=== PATIENT | male | born 1950 | race Caucasian/White ===

== ENCOUNTER 2017-06-13 00:24 | Emergency (ER) | payer BC, MEDICARE ==
[~2017-06-13] VITALS: Ht 185.4 cm; Wt 100.0 kg
[~2017-06-13 00:24] MED LIST: CARB100S PO; CLOP75 PO; HYDR-3533 PO; KEPP1000 PO; ROSU5 PO; ST J81CH PO; VALA500 PO; ZOFR4TAB3 SL
[2017-06-13 00:25] VITALS: BP 118/80; PULSE 111; RESP 48; TEMP 100.8; O2SAT 98
[2017-06-13] MEDS ORDERED: MORPHINE SULFATE 4 MG/ML INJ IV ONE (00:45)
[2017-06-13 01:14] VITALS: O2SAT 98
--- NOTE | 2017-06-13 01:30 | PD ---
HPI Chief Complaint: Respiratory Distress Time Seen by Provider: 00:29 Travel History International Travel<30 days: No (UNABLE TO ASSESS PT ALTERED) Contact w/Intl Traveler<30days: No (UNABLE TO ASSESS PT ALTERED) Traveled to known affect area: No (UNABLE TO ASSESS PT ALTERED) History of Present Illness HPI 66-year-old male [facility] emergently for respiratory distress. Patient is a DNR. 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 Patient was discharged from [facility] 2 days ago and was at [facility]. He started having progressive difficulty breathing. His is here who is giving history since patient is in no capacity. She is the healthcare proxy as well. There was a chest x-ray done yesterday but the does not know about the results. Patient has a rectal temperature of 100.8. As per the paramedics initially when they arrived his oxygen saturation was in the 80s and he was gurgling with secretion. He was put on nonrebreather and even though he saturating 99% he is visibly in distress. [facility] Past Medical History Narrative Medical List of his past medical, surgical, social and family history is reviewed from the nursing note. Asthma: No Blood Disorders: No Anxiety: No Depression: No Heart Rhythm Problems: No Cancer: No Cardiac Catheterization: Yes Cardiovascular Problems: Yes (2 [place] with stent placement) High Cholesterol: Yes Chemotherapy: No Chest Pain: No Congestive Heart Failure: No COPD: No Cerebrovascular Accident: Yes (FEBRUARY 06, 2014) Coronary Artery Disease: Yes Diabetes: No Diminished Hearing: Yes (BILAT HEARING LOSS) Endocrine: No GERD: Yes Genitourinary: No Hypertension: Yes Immune Disorder: No Implanted Vascular Access Dvce: Yes (UNKOWN) Musculoskeletal: Yes Neurologic: Yes (seizures ) Psychiatric: No Reproductive: No Respiratory: No Myocardial Infarction: Yes (X2) Radiation Therapy: No Seizures: Yes Sleep Apnea: No Thyroid Disease: No Past Surgical History Body Medical Devices: cardiac stent Cardiac Surgery: Yes (2 STENTS) Coronary Stent: Yes Other Surgery: Yes (stent 2006) Social History Alcohol Use: Yes (2 MIXED DRINKS DAILY) Tobacco Use: No Substance Use: No (HX marijuana ) Allergies-Medications (Allergen,Severity, Reaction): Coded Allergies: No Known Allergies (Verified , 06/13/17) Comments No known drug allergies. Reported Meds & Prescriptions Reported Meds & Active Scripts Active Reported Azithromycin 250 Mg Tab 250 Mg PO DAILY Duoneb (Ipratropium-Albuterol Neb) 0.5-2.5 Mg/3 Ml Neb 1 Nebule INH Q6HR NEB Amlodipine (Amlodipine Besylate) 5 Mg Tab 10 Mg PEG DAILY Multi-Vitamins (Multiple Vitamin) 1 Tab Tab 1 Tab PO DAILY Lisinopril 10 Mg Tab 10 Mg PEG DAILY Folic Acid 400 Mcg Tab 1 Mg PEG DAILY Phenytoin Liq (Phenytoin) 125 Mg/5 Ml Melanie 12 Ml PEG HS Zinc Sulfate 220 Mg Tab 220 Mg PO DAILY Rosuvastatin (Rosuvastatin Calcium) 20 Mg Tab 20 Mg PEG DAILY Famotidine 20 Mg Tab 20 Mg PEG BID Ascorbic Acid 500 Mg Tab 500 Mg PO BID Metoprolol Tartrate 50 Mg Tab 50 Mg PEG BID Lactulose Liq (Lactulose) 10 Gm/15 Ml Soln 5 Ml PO BID Lactobacillus Acidophilus 1 Tab Tab 1 Tab PO BID Keppra (Levetiracetam) 500 Mg Tab 500 Mg PEG BID Narrative Medication List of his home medications reviewed from the nursing note. Review of Systems Except as stated in HPI: all other systems reviewed are Neg Physical Exam Narrative GENERAL: Unresponsive, encephalopathy, significant respiratory distress SKIN: Focused skin assessment warm/dry. HEAD: Atraumatic. Normocephalic. EYES: Pupils equal and round. No scleral icterus. No injection or drainage. ENT: No nasal bleeding or discharge. Mucous membranes pink and moist. NECK: Trachea midline. No JVD. CARDIOVASCULAR: Regular rate and rhythm. No murmur appreciated. RESPIRATORY: Significant respiratory distress with poor ability to handle secretion, course breath sounds that are transmitted from the upper airway GASTROINTESTINAL: Abdomen soft, non-tender, nondistended. Hepatic and splenic margins not palpable. MUSCULOSKELETAL: Contractures of all 4 extremities .No clubbing. No cyanosis. No edema. NEUROLOGICAL: Patient is encephalopathy, vegetative state PSYCHIATRIC: Unable to assess Data Data Last Documented VS Vital Signs Date Time Temp Pulse Resp B/P (MAP) Pulse Ox O2 Delivery O2 Flow Rate FiO2 06/13/17 01:14 98 06/13/17 00:25 100.8 111 48 118/80 (93) Orders Orders Code Status (06/13/17 00:40) Ed Comfort Care (06/13/17 00:40) Resp Oxygen Nasal Cannula (06/13/17 ) Hospice Consult (06/13/17 00:40) Morphine Inj (Morphine Inj) (06/13/17 00:45) [facility] Medical Decision Making Medical Screen Exam Complete: Yes Emergency Medical Condition: Yes Medical Record Reviewed: Yes Differential Diagnosis Aspiration pneumonia, pneumonia Narrative Course 1 AM I discussed with the about patients futile condition. I explained to her that given his agitated state he said a very high risk of aspiration pneumonia. He probably had one or multiple of them and is suffering from the consequences. The only sure way to protect his airway and ventilate him would be to intubate and put him on a ventilator. However given the bigger picture which is his underlying futile medical condition this would probably prolong the outcome of his active dying situation. Patient is in no capacity to make decisions for himself. The completely understood and immediately asked me to stop hurting him and putting any needles. She agreed with the comfort care. Comfort Care was ordered. Currently awaiting for the hospice and the employment coach. Procedures EKG Prior to Arrival: No Diagnosis Primary Impression: Respiratory distress Additional Impressions: Permanent vegetative state Aspiration pneumonia Dying care Disposition: 51 HOSPICE/MED FACILITY Condition: Serious Fredo Felix MD Jun 13, 2017 01:30
[2017-06-13] MEDS ORDERED: ASCO500T PO (01:35)
[2017-06-13] MEDS ORDERED: LACT10SO PO (01:35)
[2017-06-13] MEDS ORDERED: METO50TA PEG (01:35)
[2017-06-13] MEDS ORDERED: LACTTAB8 PO (01:35)
[2017-06-13] MEDS ORDERED: LEVE500 PEG (01:35)
[2017-06-13] MEDS ORDERED: AMLO5TAB2 PEG (01:51)
[2017-06-13] MEDS ORDERED: MULTTAB4 PO (01:51)
[2017-06-13] MEDS ORDERED: LISI10TA3 PEG (01:51)
[2017-06-13] MEDS ORDERED: FOLI400T PEG (01:51)
[2017-06-13] MEDS ORDERED: ZINC220T PO (01:51)
[2017-06-13] MEDS ORDERED: ROSU1TAB8 PEG (01:51)
[2017-06-13] MEDS ORDERED: FAMO20TA2 PEG (01:51)
[2017-06-13] MEDS ORDERED: IPRASOL INH (01:51)
[2017-06-13] MEDS ORDERED: PHEN125S PEG (01:51)
[2017-06-13] MEDS ORDERED: AZIT250T3 PO (01:51)
== END 2017-06-13 05:03 ==
LOC: NEPE 00:24
DX: J69.0 Pneumonitis due to inhalation of food and vomit (principal); R40.3 Persistent vegetative state; I69.298 Other sequelae of other nontraumatic intracranial hemorrhage; I25.10 Atherosclerotic heart disease of native coronary artery without angina pectoris; K21.9 Gastro-esophageal reflux disease without esophagitis; I10 Essential (primary) hypertension; E78.00 Pure hypercholesterolemia, unspecified; I25.2 Old myocardial infarction; Z66 Do not resuscitate
CPT/HCPCS: 96374; 99284; J2270